=== PATIENT | male | born 1960 | race Caucasian/White ===

== ENCOUNTER 2020-06-03 13:17 | Emergency (ER) | payer OTHER ==
[2020-06-03 14:23] LABS: ABSOLUTE EOSINOPHILS # (AUTO) 0.1 10^3/uL (0.0-0.6); ABSOLUTE LYMPHOCYTES (AUTO) 1.2 10^3/uL (0.5-4.7); ABSOLUTE MONOCYTES (AUTO) 0.8 10^3/uL (0.1-1.4); ABSOLUTE NEUT (AUTO) 14.8 10^3/uL (1.7-8.2); BASOPHILS % (AUTO) 0.2 % (0-2); EOSINOPHILS % (AUTO) 0.3 % (0-6); HEMATOCRIT 40.6 % (37.9-51.0); HEMOGLOBIN 14.1 g/dL (13.5-17.0); LYMPHOCYTES % (AUTO) 7.1 % (13-45); MEAN CORPUSCULAR HEMOGLOBIN 32.2 pg (27.0-33.4); MEAN CORPUSCULAR HGB CONC 34.8 g/dL (32.0-36.0); MEAN CORPUSCULAR VOLUME 93 fl (80-97); MONOCYTES % (AUTO) 4.7 % (3-13); PLATELET COUNT 158 10^3/uL (150-450); RED BLOOD COUNT 4.38 10^6/uL (4.35-5.55); RED CELL DISTRIBUTION WIDTH 12.9 % (11.5-14.0); SEGMENTED NEUTROPHILS % (AUTO) 87.7 % (42-78); TOTAL CELLS COUNTED % (AUTO) 100 %; WHITE BLOOD COUNT 16.9 10^3/uL (4.0-10.5)
[2020-06-03 14:27] LABS: ALBUMIN 4.3 g/dL (3.5-5.0); ALKALINE PHOSPHATASE 67 U/L (38-126); ANION GAP 11 (5-19); ASPARTATE AMINO TRANSFERASE 33 U/L (17-59); BILIRUBIN,DIRECT 0.2 mg/dL (0.0-0.4); BILIRUBIN,TOTAL 0.6 mg/dL (0.2-1.3); BLOOD UREA NITROGEN 16 mg/dL (7-20); CALCIUM 9.7 mg/dL (8.4-10.2); CARBON DIOXIDE 23 mmol/L (22-30); CHLORIDE 104 mmol/L (98-107); GLUCOSE 132 mg/dL (75-110); POTASSIUM 3.8 mmol/L (3.6-5.0); TOTAL PROTEIN 7.3 g/dL (6.3-8.2)
[2020-06-03 14:43] LABS: INTERNATIONAL RATION (INR) 1.02; PROTHROMBIN TIME 13.6 SEC (11.4-15.4)
[2020-06-03] MEDS ORDERED: ACETAMINOPHEN 325 MG TABLET PO ONE (16:23)
[2020-06-03] MEDS ORDERED: ACETAMINOPHEN 325 MG TABLET ONE (16:25)
--- NOTE | 2020-06-03 17:15 | ER Document Report ---
ED Seizure - General Chief Complaint: Seizure Stated Complaint: POSSIBLE SEIZURE Time Seen by Provider: 06/03/20 17:01 Mode of Arrival: Ambulatory Information source: Patient - HPI Notes: This patient is a 60-year-old gentleman who has a history of seizures following stroke and has been on levetiracetam him most recently 125 mg twice a day. He had a witnessed seizure at home today after taking only 125 mg once a day of his meds for 2 days. His reports his seizure lasted about 3 minutes. He was postictal for some time afterward. She called 911 and he was transported here for further evaluation. Initially was quite hypertensive but his blood pressure has normalized. He had a headache but that has improved. He has had some back pain and myalgias from his seizure but they seem to be improving slightly. He seems to have a lengthy and complex neurologic history and he is followed in [place]. They have a vacation home here in our area but unfortunately none of his records are here to review. He also has a history of [place] spotted fever. His is very concerned that this might represent a reactivation of that illness. He is otherwise in his usual state of health. He has a history of previous thoracic spine compression fractures. Past Medical History - Social History Smoking Status: Unknown if Ever Smoked Family History: Reviewed & Not Pertinent Patient has homicidal ideation: No - Medical History Notes: Past medical history reviewed as documented in the electronic health record. Review of Systems - Review of Systems Notes: All other systems are negative or noncontributory except as noted in the present illness. Physical Exam - Vital signs Vitals: Resp Pulse Ox 21 H 96 06/03/20 13:23 06/03/20 13:23 - Notes Notes: General: Well-developed well-nourished male no acute distress. Vital signs and nursing chief complaint are reviewed. HEENT: Normocephalic and atraumatic. EOMI. PERRLA. ENT otherwise unremarkable. Neck: Supple nontender. Lungs: Clear to auscultation all billings. Heart: Regular rate and rhythm no murmur. Abdomen: Soft nontender no mass guarding rigidity or guarding. Skin: Warm moist good turgor no rashes. Extremities: Without clubbing cyanosis edema or deformity. Neuro: Alert and oriented x3. Cranial nerves appear intact. Strength and sensation are intact in all 4 extremities. Course - Re-evaluation Re-evalutation: 06/03/20 19:32 Patient was reevaluated prior to discharge. His blood pressure normalized. His pain was improved with morphine. His diagnostic studies were unremarkable. His levetiracetam level and his [place] spotted fever IgM were both pending. Discussed the need for follow-up with his neurologist in [place]. As far as levetiracetam dosing is concerned, the patient and especially his both expressed great concern about the level of side effects he has reviewed small doses of medication. That being said I do not think it appropriate to try changing his antiepileptic regimen as an outpatient at this time. I recommended that he take 250 mg of levetiracetam when he gets home since they have an ample supply. Starting tomorrow morning he can get back on his regular regimen of 125 mg twice a day and then contact his neurologist for further instructions. - Vital Signs Vital signs: Temp Pulse Resp BP Pulse Ox 98.4 F 89 12 164/95 H 99 06/03/20 13:36 06/03/20 13:24 06/03/20 20:01 06/03/20 20:01 06/03/20 20:01 - Laboratory Result Diagrams: 06/03/20 13:47 06/03/20 13:47 Laboratory results interpreted by me: 06/03/20 06/03/20 13:47 13:47 WBC 16.9 H Lymph % (Auto) 7.1 L Absolute Neuts (auto) 14.8 H Seg Neutrophils % 87.7 H Glucose 132 H - Diagnostic Test Radiology reviewed: Reports reviewed Radiology results interpreted by me: 06/03/20 19:33 06/03/20 13:47 06/03/20 13:47 MCV 93 fl (80-97) 06/03/20 13:47 MCH 32.2 pg (27.0-33.4) 06/03/20 13:47 MCHC 34.8 g/dL (32.0-36.0) 06/03/20 13:47 RDW 12.9 % (11.5-14.0) 06/03/20 13:47 Seg Neutrophils % 87.7 % (42-78) H 06/03/20 13:47 Chloride 104 mmol/L (98-107) 06/03/20 13:47 Carbon Dioxide 23 mmol/L (22-30) 06/03/20 13:47 Anion Gap 11 (5-19) 06/03/20 13:47 Est GFR ( Amer) > 60 (>60) 06/03/20 13:47 Glucose 132 mg/dL (75-110) H 06/03/20 13:47 Calcium 9.7 mg/dL (8.4-10.2) 06/03/20 13:47 Magnesium 2.0 mg/dL (1.6-2.3) 06/03/20 13:47 Total Bilirubin 0.6 mg/dL (0.2-1.3) 06/03/20 13:47 AST 33 U/L (17-59) 06/03/20 13:47 Alkaline Phosphatase 67 U/L (38-126) 06/03/20 13:47 Total Protein 7.3 g/dL (6.3-8.2) 06/03/20 13:47 Albumin 4.3 g/dL (3.5-5.0) 06/03/20 13:47 Discharge - Discharge Clinical Impression: Seizure Condition: Good Disposition: HOME, SELF-CARE Instructions: Seizure, Known Epileptic ([facility]) Additional Instructions: Take 250 mg of Keppra tonight when you get home. Then tomorrow morning start your usual dose of 125 mg twice a day. Contact your neurologist in [place] for further dosing instructions and follow- up. Return here if any concerning symptoms develop.
[2020-06-03] MEDS ORDERED: MORPHINE SULFATE 10 MG/ML INJ IV ONE (17:42)
--- NOTE | 2020-06-03 18:48 | RADIOLOGY REPORT (SQ) ---
EXAM DESCRIPTION: T SPINE AP/LAT IMAGES COMPLETED DATE/TIME: 06/03/2020 6:25 pm REASON FOR STUDY: Pain s/p seizure COMPARISON: None. NUMBER OF VIEWS: Two views. TECHNIQUE: AP and lateral radiographic images acquired of the thoracic spine. LIMITATIONS: None. FINDINGS: MINERALIZATION: Normal. ALIGNMENT: Normal. No scoliosis. VERTEBRAE: There is mild loss of height of several of the mid to upper thoracic vertebrae. No acute compression changes are appreciated. DISCS: No significant loss of height or significant narrowing. No large osteophytes. HARDWARE: None in the spine. MEDIASTINUM AND SOFT TISSUES: Normal heart size and aortic contour. No soft tissue abnormality. VISUALIZED LUNG [place]: Clear. OTHER: No other significant finding. IMPRESSION: There is mild loss of height of several thoracic vertebrae. No acute fracture is seen. TECHNICAL DOCUMENTATION: JOB ID: [id number] [employer]- All Rights Reserved Reading location - IP/workstation name: [email or web address]
[2020-06-03] MEDS ORDERED: ONDANSETRON 4 MG TAB.RAPDIS PO ONE (20:19)
[2020-06-03 20:33] VITALS: BP 164/95
[2020-06-06 07:12] LABS: ROCKY MTN SPOTTED FEV IGG EIA Negative (Negative)
== END 2020-06-03 20:15 | disposition home or self-care (01) ==
LOC: ER 13:17
DX: R56.9 Unspecified convulsions (principal); Z79.899 Other long term (current) drug therapy
CPT/HCPCS: 99284; 96374; 36415; 80177; 83735; 85025; 85610; 80053; 86757 ×2; 72070; S0119; J2270